=== PATIENT | female | born 1935 | race African-American/Black ===

== ENCOUNTER 2016-12-04 16:53 | Emergency (ER) | payer OTHER, MEDICAID ==
[~2016-12-04] VITALS: Ht 157.5 cm; Wt 127.3 kg
[2016-12-04] MEDS ORDERED: DONE5TAB PO (17:00)
[2016-12-04] MEDS ORDERED: INSU100V3 SQ (17:00)
[2016-12-04] MEDS ORDERED: LISI1TAB11 PO (17:00)
[2016-12-04] MEDS ORDERED: ATEN50TA PO (17:00)
[2016-12-04] MEDS ORDERED: GUAI118S23 PO (17:00)
[2016-12-04] MEDS ORDERED: SIMV-261 PO (17:00)
[2016-12-04] MEDS ORDERED: CLON.2 PO (17:00)
[2016-12-04] MEDS ORDERED: NPH,100V SQ (17:00)
[2016-12-04] MEDS ORDERED: ACETAMINOPHEN/CODEINE 300-30 MG TABLET PO ONE (18:45)
[2016-12-04] MEDS ORDERED: IPRATROPIUM BROMIDE 0.5 MG/2.5 ML NEB SOLUTION NEB ONE (19:00)
[2016-12-04] MEDS ORDERED: ALBUTEROL SULFATE 2.5 MG/0.5 ML NEB SOLUTION NEB ONE (19:00)
[2016-12-04 19:18] LABS: BASOPHILS # (AUTO) 0.01 K/uL (0.00-0.20); BASOPHILS % (AUTO) 0.1 % (0.0-2.0); EOSINOPHILS # (AUTO) 0.34 K/uL (0.00-0.70); EOSINOPHILS % (AUTO) 2.86 % (1.0-6.0); HEMATOCRIT 31.4 % (36-46); HEMOGLOBIN 9.9 g/dL (12.0-16.0); LYMPHOCYTES # (AUTO) 1.8 K/uL (1.0-4.8); MEAN CORPUSCULAR HEMOGLOBIN 26.6 pg (26.0-34.0); MEAN CORPUSCULAR HGB CONC 31.6 G/dL (31.0-37.0); MEAN CORPUSCULAR VOLUME 84 fL (80-100); MONOCYTES # (AUTO) 0.6 K/uL (0.1-1.0); MONOCYTES % (AUTO) 4.9 % (2.0-9.0); NEUTROPHILS # (AUTO) 9.3 K/uL (1.8-7.7); NEUTROPHILS % (AUTO) 77.2 % (40.0-70.0); PLATELET COUNT (AUTO) 409 K/uL (150-450); RED BLOOD CELL COUNT(AUTO) 3.73 MIL/uL (4.00-5.20); RED CELL DISTRIBUTION WIDTH 16.2 % (11.5-14.5)
[2016-12-04 19:33] LABS: ANION GAP 9 mmol/L (8-16); CALCIUM, TOTAL 8.8 mg/dL (8.8-10.5); CARBON DIOXIDE 30 mmol/L (22-29); CHLORIDE 102 mmol/L (98-107); CREATININE 1.16 mg/dL (0.60-1.30); GLOMERULAR FILTR. RATE CALC 54 mL/min (>60); POTASSIUM 4.3 mmol/L (3.5-5.1); SODIUM SERUM 141 mmol/L (136-145); UREA NITROGEN, BLOOD 20 mg/dL (7-18)
[2016-12-04 19:52] LABS: B-TYPE NATRIURETIC PEPTIDE 126 pg/mL (0-100)
[2016-12-04 19:58] LABS: ALANINE AMINOTRANSFERASE 17 U/L (12-78); ALBUMIN 3.1 g/dL (3.4-5.0); ASPARTATE AMINOTRANSFERASE 15 U/L (15-37); BILIRUBIN,TOTAL 0.2 mg/dL (0.1-1.0); CREATINE KINASE MB 1.2 ng/mL (0-5); CREATINE KINASE, TOTAL 88 U/L (26-192); TOTAL PROTEIN, SERUM 7.7 g/dL (6.4-8.2)
[2016-12-04] MEDS ORDERED: ASPIRIN 325 MG EC TABLET PO ONE (20:45)
[2016-12-04 22:31] VITALS: BP 124/68
[2016-12-04 22:52] LABS: GLUCOSE,POINT OF CARE 144 MG/DL (70-110)
== END 2016-12-04 22:53 | disposition short-term general hospital (02) ==
LOC: EMS 16:58
DX: R06.02 Shortness of breath (principal); I25.10 Atherosclerotic heart disease of native coronary artery without angina pectoris; R79.89 Other specified abnormal findings of blood chemistry; J40 Bronchitis, not specified as acute or chronic; I10 Essential (primary) hypertension; I48.91 Unspecified atrial fibrillation; E78.00 Pure hypercholesterolemia, unspecified; E11.9 Type 2 diabetes mellitus without complications; K21.9 Gastro-esophageal reflux disease without esophagitis; Z86.73 Personal history of transient ischemic attack (TIA), and cerebral infarction without residual deficits; Z88.5 Allergy status to narcotic agent
CPT/HCPCS: 82962; 93005; 94640; 99285

== ENCOUNTER 2020-07-15 17:27 | Emergency (ER) | payer OTHER, MEDICAID ==
[~2020-07-15] VITALS: Ht 162.6 cm; Wt 91.5 kg
[~2020-07-15 17:27] MED LIST: ATEN-72 PO; CLON0.2T2 PO; DONE5TAB5 PO; GUAI118S23 PO; INSU100V3 SQ; LISI1TAB11 PO; NPH,100V SQ; SIMV-261 PO
[2020-07-15 17:42] LABS: BASOPHILS % (AUTO) 0.3 % (0.0-2.0); EOSINOPHILS % (AUTO) 2.8 % (1.0-6.0); HEMATOCRIT 35.9 % (36-46); HEMOGLOBIN 11.5 g/dL (12.0-16.0); LYMPHOCYTES # (AUTO) 2.7 K/uL (1.0-4.8); MEAN CORPUSCULAR HEMOGLOBIN 30.3 pg (26.0-34.0); MEAN CORPUSCULAR VOLUME 95 fL (80-100); MONOCYTES # (AUTO) 0.7 K/uL (0.1-1.0); MONOCYTES % (AUTO) 6.5 % (2.0-9.0); NEUTROPHILS # (AUTO) 6.7 K/uL (1.8-7.7); NEUTROPHILS % (AUTO) 64.4 % (40.0-70.0); PLATELET COUNT (AUTO) 262 K/uL (150-450); RED BLOOD CELL COUNT(AUTO) 3.79 MIL/uL (4.00-5.20); RED CELL DISTRIBUTION WIDTH 13.6 % (11.5-14.5)
[2020-07-15 17:55] LABS: INR 1.2 (0.9-1.1); PROTHROMBIN TIME 12.4 SEC (9.4-11.6)
[2020-07-15 17:57] LABS: ALBUMIN 3.2 g/dL (3.4-5.0); BILIRUBIN,TOTAL 0.2 mg/dL (0.1-1.0); CALCIUM, TOTAL 9.4 mg/dL (8.8-10.5); CREATININE 1.73 mg/dL (0.60-1.30); TOTAL PROTEIN, SERUM 7.9 g/dL (6.4-8.2)
[2020-07-15 18:00] LABS: POTASSIUM 6.2 mmol/L (3.5-5.1)
[2020-07-15] MEDS ORDERED: ASPIRIN 81 MG CHEWABLE TABLET PO ONE (18:15)
[2020-07-15] MEDS ORDERED: CALCIUM GLUCONATE 100 MG/ML 10 ML IVP ONE (18:15)
[2020-07-15] MEDS ORDERED: FUROSEMIDE 40 MG/4 ML VIAL IVP ONE (18:15)
[2020-07-15] MEDS ORDERED: INSULIN REGULAR, HUMAN 100 UNITS/ML SQ ONE ×2 (18:30→19:00)
[2020-07-15] MEDS ORDERED: DEXTROSE 50%-WATER 25 GM/50 ML SYRINGE IVP ONE (18:30)
[2020-07-15] MEDS ORDERED: SODIUM CHLORIDE 0.9% 100 ML ONE (18:39)
[2020-07-15] MEDS ORDERED: IOVERSOL 350 MG/ML 100 ML VIAL ONE (18:39)
[2020-07-15 18:42] LABS: APPEARANCE,URINE CLEAR (CLEAR); BILIRUBIN,URINE NEGATIVE (NEGATIVE); GLUCOSE, URINE (UA) NEGATIVE (NEGATIVE); KETONES,URINE NEGATIVE (NEGATIVE); LEUKOCYTE ESTERASE ,URINE NEGATIVE (NEGATIVE); NITRATE,URINE NEGATIVE (NEGATIVE); OCCULT BLOOD,URINE NEGATIVE (NEGATIVE); PH,URINE 5.5 (5.0-8.0); PROTEIN,URINE NEGATIVE (NEGATIVE); UROBILINOGEN,URINE 0.2 mg/dL (<=1.0)
[2020-07-15] MEDS ORDERED: INSULIN REGULAR, HUMAN 100 UNITS/ML IVP ONE (18:45)
[2020-07-15 18:47] LABS: AMPHET/METH SCREEN,URINE NEGATIVE (NEGATIVE); BARBITURATE SCREEN, URINE NEGATIVE (NEGATIVE); BENZODIAZEPINES SCREEN,URINE NEGATIVE (NEGATIVE); CANNABINOID SCREEN,URINE NEGATIVE (NEGATIVE); COCAINE SCREEN,URINE NEGATIVE (NEGATIVE); METHADONE SCREEN, URINE NEGATIVE (NEGATIVE); OPIATE SCREEN,URINE NEGATIVE (NEGATIVE)
[2020-07-15 18:48] LABS: BACTERIA,URINE None Seen /HPF (None Seen); RBC,URINE 0-2 /HPF (0-2); SQUAMOUS EPITHELIAL CELL,UR Rare /LPF (None Seen); WBC,URINE 0-2 /HPF (0-5)
[2020-07-15 18:49] LABS: PHENCYCLIDINE SCREEN,URINE NEGATIVE (NEGATIVE)
[2020-07-15] MEDS ORDERED: APIX2.5T PO (18:57)
[2020-07-15 19:16] LABS: COVID AG,FIA SOURCE NASOPHARYNGEAL
[2020-07-15 20:40] VITALS: BP 150/70
== END 2020-07-16 00:02 | disposition short-term general hospital (02) ==
LOC: EMS 17:27
DX: I63.9 Cerebral infarction, unspecified (principal); G45.9 Transient cerebral ischemic attack, unspecified; R47.01 Aphasia; I48.91 Unspecified atrial fibrillation; E11.9 Type 2 diabetes mellitus without complications; K21.9 Gastro-esophageal reflux disease without esophagitis; E78.00 Pure hypercholesterolemia, unspecified; I10 Essential (primary) hypertension; Z20.822 Contact with and (suspected) exposure to COVID-19; Z79.4 Long term (current) use of insulin
CPT/HCPCS: 36415; 70450; 70496; 71045; 80053; 80307; 81001; 82962; 83880; 84484; 85025; 85610; 85730; 86850; 86900; 86901; 87426; 93005; 96372; 96374; 96375; 99291; J0610; J1815; J1940; J7050; Q9967; 51702